=== PATIENT | male | born 1935 | race Caucasian/White ===

== ENCOUNTER 2021-10-08 09:17 | Inpatient (IN) | payer MEDICARE, BC ==
[2021-10-06 17:15] VITALS: BMI 25.2
--- NOTE | 2021-10-07 19:05 | P.GSHP ---
History of Present Illness H&P Date: 10/07/21 86yo male in urinary retention who has failed several attempts at spontaneous voiding who comes for a bipolar turp. the risks and complications have been explained to the patient and son including infection, sepsis, cardiac issues, anesthetic issues persistent retention incontinence. - Constitutional Constitutional: Denies chills, Denies fever - EENT Eyes: denies blurred vision, denies pain Ears, nose, mouth and throat: Denies headache, Denies sore throat - Cardiovascular Cardiovascular: Denies chest pain, Denies shortness of breath - Respiratory Respiratory: Denies cough, Denies 7 - Gastrointestinal Gastrointestinal: Denies abdominal pain, Denies diarrhea, Denies nausea, Denies vomiting - Genitourinary (Female) Genitourinary: Denies dysuria, Denies hematuria - Genitourinary (Male) Genitourinary: Denies dysuria, Denies hematuria - Musculoskeletal Musculoskeletal: Denies myalgias - Integumentary Integumentary: Denies pruritus, Denies rash - Neurological Neurological: Denies numbness, Denies weakness - Psychiatric Psychiatric: Denies anxiety, Denies depression - Endocrine Endocrine: Denies fatigue, Denies weight change Past Medical History Past Medical History: Cancer, CVA/TIA, Dementia, Diabetes Mellitus, GERD/Reflux, Hearing Disorder / Deafness, Hyperlipidemia, Hypertension, Prostate Disorder Additional Past Medical History / Comment(s): was admitted to [facility] August 2021 for urinary bleeding, urinary blockage,?kidney stone,has alvarado catheter inserted.son Jeanmarie Cornejo is LG-[place] pt and Letter of Guardianship day of proc.Dtr n law stated pt "has hx of dementia but can sign own consents at times",deaf lt ear,[place] rt ear, hx CVA-no residual-was told by Dr Albert yrs ago,skin [place] History of Any Multi-Drug Resistant Organisms: None Reported Past Surgical History: Joint Replacement Additional Past Surgical History / Comment(s): cystoscopy,left knee replaced x2 Past Anesthesia/Blood Transfusion Reactions: No Reported Reaction Additional Past Anesthesia/Blood Transfusion Reaction / Comment(s): no known hx blood transfusion Smoking Status: Former smoker, Second hand smoke exposure - Past Family History Father Additional Family Medical History / Comment(s): PARKINSON'S DX. FATHER IN HIS EARLY 90'S Mother Additional Family Medical History / Comment(s): MOTHER -AIRPLANE CRASH. Medications and Allergies Home Medications Medication Instructions Recorded Confirmed Type INSULIN ASPART (NovoLOG) [NovoLOG] 1 dose INJ QID PRN 12/05/13 10/06/21 History Levothyroxine Sodium [Synthroid] 75 mcg PO QAM 12/05/13 10/06/21 History Aspirin 81 mg PO DAILY 09/07/14 10/06/21 History Cholecalciferol [Vitamin D3] 50 mcg PO DAILY 09/07/14 10/06/21 History Atorvastatin [Lipitor] 10 mg PO DAILY 10/06/21 10/06/21 History Famotidine 20 mg PO BID 10/06/21 10/06/21 History Fenofibrate Nanocrystallized 145 mg PO DAILY 10/06/21 10/06/21 History [Fenofibrate] Fluconazole [Diflucan] 100 mg PO DAILY 10/06/21 10/06/21 History Insulin Degludec [Tresiba] 16 units SQ QAM 10/06/21 10/06/21 History Losartan [Cozaar] 50 mg PO QAM 10/06/21 10/06/21 History Multivitamins, Thera [Multivitamin 1 tab PO DAILY 10/06/21 10/06/21 History (formulary)] Sennosides [Senokot] 8.6 mg PO DAILY 10/06/21 10/06/21 History Allergies Allergy/AdvReac Type Severity Reaction Status Date / Time hydroxyzine pamoate Allergy Hallucinati Verified 10/06/21 16:39 [From Vistaril] ons lorazepam [From Ativan] Allergy Hallucinati Verified 10/06/21 16:39 ons Penicillins Allergy Rash/Hives Verified 10/06/21 16:39 solifenacin succinate Allergy Hallucinati Verified 10/06/21 16:39 [From Vesicare] ons amantadine AdvReac Hallucinati Verified 10/06/21 16:39 ons carbidopa AdvReac Hallucinati Verified 10/06/21 16:39 ons diphenhydramine HCl AdvReac Hallucinati Verified 10/06/21 16:39 [From Benadryl] ons hydroxyzine HCl AdvReac Hallucinati Verified 10/06/21 16:39 [From Vistaril] ons levodopa AdvReac Hallucinati Verified 10/06/21 16:41 ons risperidone [From Risperdal] AdvReac Hallucinati Verified 10/06/21 16:39 ons Surgical - Exam - General well developed, well nourished, no distress - Eyes normal ocular movement, no icteric - ENT no hearing loss, no congestion - Neck no masses, trachea midline - Respiratory normal respiratory effort, clear to auscultation - Abdomen Abdomen: soft, non tender, no guarding, no rigid, no rebound - Genitourinary indwelling catheter, enlarged prostate. - Integumentary no rash, no abnormal pigmentation - Neurologic no disoriented, no combative - Psychiatric oriented to time, oriented to person, oriented to place, speech is normal, memory intact Assessment and Plan Assessment: Impression: Urine retention secondary to enlarged prostate. Multiple medical issues Plan: Bipolar turp
[~2021-10-08 09:17] MED LIST: DEXAMETHASONE SOD PHOSPHATE 4 MG/ML 1 ML VIAL IV ONE; GENTAMICIN 90 MG in SODIUM CHLORIDE 0.9% 100 ML IVPB PRN; ONDANSETRON 4 MG/2 ML VIAL IVP ONE; fentaNYL (PF) 50 MCG/ML 2 ML AMP IV PRN
[2021-10-08] MEDS: LACTATED RINGERS 1,000 ML IV SCH (10:15)
[2021-10-08] MEDS ORDERED: LIDOCAINE 1% (10MG/ML) FOR IV START INTRADERMA ONE (10:15)
[2021-10-08 10:29] LABS: Glucose,Whole Blood 109 mg/dL (70-110)
[2021-10-08] MEDS ORDERED: LIDOCAINE 2% INJ 20 MG/ML (2 ML VIAL) ONE (11:07)
[2021-10-08] MEDS ORDERED: PROPOFOL 10 MG/ML 20 ML VIAL IV ONE (11:07)
[2021-10-08] MEDS ORDERED: fentaNYL (PF) 50 MCG/ML 2 ML AMP ONE (11:07)
[2021-10-08] MEDS ORDERED: GLYCOPYRROLATE 0.2 MG/ML 2 ML VIAL ONE (11:07)
[2021-10-08] MEDS ORDERED: ROCURONIUM 10 MG/ML (5 ML VIAL) IV ONE (11:07)
[2021-10-08] MEDS ORDERED: SUCCINYLCHOLINE CHLORIDE 200 MG/10 ML VIAL IV ONE (11:07)
[2021-10-08] MEDS ORDERED: NEOSTIGMINE 1 MG/ML 10 ML VIAL ONE (11:07)
[2021-10-08] MEDS ORDERED: ACETAMINOPHEN TAB 325 MG TAB PO PRN (12:27)
--- NOTE | 2021-10-08 12:32 | P.OP ---
Date of Procedure: 10/08/21 Preoperative Diagnosis: Urine retention secondary to BPH Postoperative Diagnosis: Same Procedure(s) Performed: Bipolar TURP Anesthesia: FABRICE Surgeon: Dennis Tafoya Estimated Blood Loss (ml): 50 Pathology: other (Prostate) Condition: stable Disposition: PACU Indications for Procedure: The patient is 86. His urine retention. Medical management is filled to liberate him of his urine retention. He comes for a bipolar TURP as he has an obstructing prostate Description of Procedure: Patient brought to the operating suite. Given general anesthesia. Placed lithotomy position with sterile prep and drape. Under direct vision the 25- Urdu sheath and direct vision obturator and Foroblique lenses introduced in urethra anterior urethra is normal. The prostatic urethra shows trilobar obstruction with a heavily trabeculated bladder. With the Skubana resectoscope I first resect the left lateral lobe from 12:00 to 6:00 from bladder neck to verumontanum. I do the same of the right lateral lobe and then resect the redundant floor tissue. The bladder is freed of prostatic chips with the Brad evacuator. I reinspected the prostate fossa and control any bleeding with electrocautery. There no remaining chips in the bladder. The resectoscope rem verito. The bladder is creded withStrong stream. An 18-Urdu coud-tip catheter is introduced the bladder with clear to light pink urine return. The patient will be placed in the hospital overnight due to his age. He tolerated procedure well.
[2021-10-08 13:46] LABS: Glucose,Whole Blood 126 mg/dL (70-110)
[2021-10-08 16:38] LABS: Glucose,Whole Blood 193 mg/dL (70-110)
[2021-10-08] MEDS ORDERED: FAMOTIDINE 20 MG TAB PO SCH (21:00)
[2021-10-08 21:08] LABS: Glucose,Whole Blood 219 mg/dL (70-110)
[2021-10-09] MEDS ORDERED: ONDANSETRON 4 MG/2 ML VIAL IVP PRN (00:10)
[2021-10-09] MEDS ORDERED: PANTOPRAZOLE 40 MG/10 ML VIAL IVP ONE (04:48)
[2021-10-09] MEDS: LEVOTHYROXINE 75 MCG TAB PO SCH (05:18)
[2021-10-09 06:35] LABS: Basophils # (A) 0.1 k/uL (0-0.2); Basophils % (A) 1 %; Eosinophils % (A) 0 %; HGB 13.4 gm/dL (13.0-17.5); Hypochromasia Moderate; Lymphocytes # (A) 0.9 k/uL (1.0-4.8); Lymphocytes % (A) 5 %; MCH 28.9 pg (25.0-35.0); MCHC 31.2 g/dL (31.0-37.0); MCV 92.7 fL (80.0-100.0); Mean Platelet Volume 8.3; Monocytes # (A) 1.3 k/uL (0-1.0); Monocytes % (A) 7 %; Neutrophils # (A) 16.4 k/uL (1.3-7.7); Neutrophils % (A) 87 %; Platelet Count 366 k/uL (150-450); RBC 4.64 m/uL (4.30-5.90); RDW 14.1 % (11.5-15.5); WBC 18.8 k/uL (3.8-10.6)
[2021-10-09 07:03] LABS: Glucose,Whole Blood 248 mg/dL (70-110)
[2021-10-09] MEDS ORDERED: DEXTROSE 50% SYRINGE 50 ML IVP PRN ×2 (08:23)
--- NOTE | 2021-10-09 08:27 | P.CONS ---
History of Present Illness - Reason for Consult Consult date: 10/09/21 vomiting Requesting physician: Bryn Miles - Chief Complaint urinary retention - History of Present Illness Patient is a an 86-year-old male with history of urinary retention, diabetes, GERD, dyslipidemia, hypertension, and multiple other comorbid conditions who presented for bipolar transurethral resection of the prostate. Apparently patient had 3 episodes of coffee-ground emesis overnight and consult to medicine was placed. He was given Protonix. Serial hemoglobins were ordered. Alexa Urine culture was completed on 10/01/21 and showed alexa. He has been on diflucan. Patient seen and examined at bedside. He reports that he was doing well after surgery until late last evening. He started having some nausea and vomiting. He vomited approximately 6 times a minute was some concern on his last episode of emesis that there was blood areas he denies any prior history of GI bleeding. He does state that he has severe acid reflux. I asked if he has a history of diabetic gastroparesis, he has stated that in the past they've told him that everything doesn't empty appropriately. He has already ate eggs this morning and has tolerated that without any vomiting. He also states that last night he was on the bathroom trying to have a bowel movement but couldn't and then was vomiting. He denies any overt abdominal pain. Denies any fevers or chills. States he was in his typical state of health prior to surgery. Pertinent positives and negatives as discussed in HPI, a complete review of systems was performed and all other systems are negative. Vital signs reviewed General: nontoxic, no distress, appears at stated age Derm: warm, dry Head: atraumatic, normocephalic, symmetric Eyes: EOMI, no lid lag, anicteric sclera, pupils equal round reactive to light ENT: Nose and ears atraumatic, no thrush, no pharyngeal erythema Neck: No thyromegaly, no cervical lymphadenopathy, trachea midline, supple Mouth: no lip lesion, mucus membranes moist Cardiovascular: S1S2 reg, no murmur, positive posterior tibial pulse bilateral, no edema, capillary refill less than 2 seconds Lungs: clear to auscultation bilateral, no rhonchi, no rales, no wheeze, no accessory muscle use Abdominal: soft, nontender to palpation, no guarding, no appreciable organomegaly, normal bowel sounds Ext: no gross muscle atrophy, muscle strength muscle strength 5 out of 5 in all 4 extremities, no contractures Neuro: CN II-XII grossly intact, light touch intact all 4 extremities, finger to nose within normal limits, Psych: Alert, oriented, appropriate affect Assessment/Plan: 86 yo M s/p TURP with hematuria, post op management per urology Postoperative nausea and vomiting -suspect component of gastroparesis given long standing hx of insulin dependent diabetes -Doubt significant GI bleed as HgB is stable and emsis in basin appears more fecculant. -Check KUB to rule out ileus -Change to full liquid diet -Serial CBCs -Continue with Protonix - hold home PPI while on H2 raman DM 2 - 1/2 the levemir this morning, add sliding scale insulin - follow BS HTN - follow BP - Cozaar HLD - fenofibrate Chronic: Dementia Prior CVA with no residual deficits Heart appearing Thank you for allowing us to participate in the care of this pleasant patient. Do not hesitate to contact us with questions. Someone can be reached from the [facility] hospitalist group all hours of the day at [phone] or via [employer]. Past Medical History Past Medical History: Cancer, CVA/TIA, Dementia, Diabetes Mellitus, GERD/Reflux, Hearing Disorder / Deafness, Hyperlipidemia, Hypertension, Prostate Disorder Additional Past Medical History / Comment(s): was admitted to [facility] August 2021 for urinary bleeding, urinary blockage,?kidney stone,has alvarado catheter inserted.son Jeanmarie Cornejo is LG-[place] pt and Letter of Guardianship day .Dtr n law stated pt "has hx of dementia but can sign own consents at times",deaf lt ear,eyak rt ear, hx CVA-no residual-was told by Dr Albert yrs ago,skin [place] History of Any Multi-Drug Resistant Organisms: None Reported Past Surgical History: Joint Replacement Additional Past Surgical History / Comment(s): cystoscopy,left knee replaced x2 Past Anesthesia/Blood Transfusion Reactions: No Reported Reaction Additional Past Anesthesia/Blood Transfusion Reaction / Comm: no known hx blood transfusion Past Psychological History: No Psychological Hx Reported Smoking Status: Former smoker, Second hand smoke exposure Past Alcohol Use History: None Reported Additional Past Alcohol Use History / Comment(s): quit smoking in 1965 Past Drug Use History: None Reported - Past Family History Father Additional Family Medical History / Comment(s): PARKINSON'S DX. FATHER IN HIS EARLY 90'S Mother Additional Family Medical History / Comment(s): MOTHER -AIRPLANE CRASH. Medications and Allergies Home Medications Medication Instructions Recorded Confirmed Type INSULIN ASPART (NovoLOG) [NovoLOG] 1 dose INJ QID PRN 12/05/13 10/06/21 History Levothyroxine Sodium [Synthroid] 75 mcg PO QAM 12/05/13 10/06/21 History Aspirin 81 mg PO DAILY 09/07/14 10/06/21 History Cholecalciferol [Vitamin D3] 50 mcg PO DAILY 09/07/14 10/06/21 History Atorvastatin [Lipitor] 10 mg PO DAILY 10/06/21 10/06/21 History Famotidine 20 mg PO BID 10/06/21 10/06/21 History Fenofibrate Nanocrystallized 145 mg PO DAILY 10/06/21 10/06/21 History [Fenofibrate] Fluconazole [Diflucan] 100 mg PO DAILY 10/06/21 10/06/21 History Insulin Degludec [Tresiba] 16 units SQ QAM 10/06/21 10/06/21 History Losartan [Cozaar] 50 mg PO QAM 10/06/21 10/06/21 History Multivitamins, Thera [Multivitamin 1 tab PO DAILY 10/06/21 10/06/21 History (formulary)] Sennosides [Senokot] 8.6 mg PO DAILY 10/06/21 10/06/21 History Allergies Allergy/AdvReac Type Severity Reaction Status Date / Time hydroxyzine pamoate Allergy Hallucinati Verified 10/06/21 16:39 [From Vistaril] ons lorazepam [From Ativan] Allergy Hallucinati Verified 10/06/21 16:39 ons Penicillins Allergy Rash/Hives Verified 10/06/21 16:39 solifenacin succinate Allergy Hallucinati Verified 10/06/21 16:39 [From Vesicare] ons amantadine AdvReac Hallucinati Verified 10/06/21 16:39 ons carbidopa AdvReac Hallucinati Verified 10/06/21 16:39 ons diphenhydramine HCl AdvReac Hallucinati Verified 10/06/21 16:39 [From Benadryl] ons hydroxyzine HCl AdvReac Hallucinati Verified 10/06/21 16:39 [From Vistaril] ons levodopa AdvReac Hallucinati Verified 10/06/21 16:41 ons risperidone [From Risperdal] AdvReac Hallucinati Verified 10/06/21 16:39 ons Physical Exam Osteopathic Statement: *. No significant issues noted on an osteopathic structural exam other than those noted in the History and Physical/Consult. Vitals: Vital Signs Temp Pulse Pulse Resp BP BP Pulse Ox 10/09/21 07:38 97.9 F 100 18 109/68 94 L 10/09/21 05:43 102 H 122/74 10/09/21 04:45 102 H 106/70 10/09/21 02:06 97.4 F L 110 H 19 146/77 96 10/09/21 00:01 109 H 135/76 10/08/21 23:58 111 H 132/82 10/08/21 23:50 114 H 18 197/91 97 10/08/21 19:57 16 10/08/21 19:00 97.9 F 109 H 20 170/93 98 10/08/21 14:00 97.4 F L 82 16 182/84 98 10/08/21 13:34 80 16 170/81 94 L 10/08/21 13:19 68 16 169/78 100 10/08/21 13:04 64 16 173/84 100 10/08/21 12:49 67 16 174/84 100 10/08/21 12:34 97.6 F 77 16 180/91 99 10/08/21 10:15 97.9 F 81 16 144/66 97 Intake and Output 10/08/21 10/09/21 10/09/21 22:59 06:59 14:59 Intake Total 480 Output Total 1250 875 Balance -770 -875 Intake: Oral 480 Output: Urine 1250 875 Coude 850 Other: Voiding Method Indwelling Catheter Indwelling Catheter Results CBC & Chem 7: 10/09/21 05:23 Labs: Abnormal Lab Results - Last 24 Hours (Table) 10/08/21 10/08/21 10/08/21 Range/Units 13:42 16:36 21:06 WBC (3.8-10.6) k/uL Neutrophils # (1.3-7.7) k/uL Lymphocytes # (1.0-4.8) k/uL Monocytes # (0-1.0) k/uL POC Glucose (mg/dL) 126 H 193 H 219 H (70-110) mg/dL 10/09/21 10/09/21 Range/Units 05:23 07:01 WBC 18.8 H (3.8-10.6) k/uL Neutrophils # 16.4 H (1.3-7.7) k/uL Lymphocytes # 0.9 L (1.0-4.8) k/uL Monocytes # 1.3 H (0-1.0) k/uL POC Glucose (mg/dL) 248 H (70-110) mg/dL
[2021-10-09] MEDS: INSULIN DETEMIR (LEVEMIR) 100 UNIT/ML SYR SQ SCH ×3 (08:35→21:27)
[2021-10-09] MEDS: LACTATED RINGERS 1,000 ML IV SCH (08:35)
[2021-10-09] MEDS ORDERED: FAMOTIDINE 20 MG TAB PO SCH (09:00)
[2021-10-09] MEDS: SENNOSIDES 8.6 MG TAB PO SCH (09:12)
[2021-10-09] MEDS: FENOFIBRATE 160 MG TAB PO SCH (09:12)
[2021-10-09] MEDS: LOSARTAN 50 MG TAB PO SCH (09:12)
[2021-10-09] MEDS: FLUCONAZOLE 100 MG TAB PO SCH (09:12)
[2021-10-09] MEDS: ATORVASTATIN 10 MG TAB PO SCH (09:12)
[2021-10-09 11:17] LABS: Glucose,Whole Blood 192 mg/dL (70-110)
[2021-10-09] MEDS: INSULIN ASPART (NovoLOG) 100 UNIT/ML VIAL SQ SCH ×3 (12:15→21:26)
--- NOTE | 2021-10-09 12:52 | XR ---
KUB HISTORY: Ileus KUB on 2 images, no comparisons There are air-filled loops of small and large bowel present. Some air-fluid levels are noted without bowel distention. No evident pneumoperitoneum. Lung bases show some possible atelectasis or scarring on the left, eventration of the hemidiaphragm on the right. Atherosclerotic vascular calcifications a re noted incidentally. Probable vascular calcifications within the pelvis. There is a spinal curvatur e. Degenerative disc changes are noted in the visualized spine. IMPRESSION: Findings could represent ileus or enteritis, possible basilar atelectasis, follow-up as i ndicated.
--- NOTE | 2021-10-09 12:52 | P.PN ---
Subjective Progress Note Date: 10/09/21 Patient his catheter clotted overnight, requiring catheter exchange. This morning urine still hematuric, was able to irrigate with return of approximately 50 mL of clot. Hemoglobin is stable, urine is light red after irrigation Objective - Vital Signs Vital signs: Vital Signs Temp 97.9 F 10/09/21 07:38 Pulse 100 10/09/21 07:38 Resp 18 10/09/21 07:38 BP 109/68 10/09/21 07:38 Pulse Ox 94 L 10/09/21 07:38 FiO2 Intake & Output 10/08/21 10/09/21 10/09/21 18:59 06:59 18:59 Intake Total 1382.25 Output Total 900 1625 Balance 482.25 -1625 Weight 68 kg Intake: IV 902.25 Oral 480 Output: Urine 850 1625 Coude 100 750 Estimated Blood Loss 50 Other: Voiding Method Indwelling Catheter Indwelling Catheter - Constitutional General appearance: Present: no acute distress - Gastrointestinal General gastrointestinal: Absent: distended, tenderness - Genitourinary Genitourinary Comment(s): alvarado light red urine - Labs CBC & Chem 7: 10/09/21 05:23 Labs: Abnormal Lab Results - Last 24 Hours (Table) 10/08/21 10/08/21 10/08/21 Range/Units 13:42 16:36 21:06 WBC (3.8-10.6) k/uL Neutrophils # (1.3-7.7) k/uL Lymphocytes # (1.0-4.8) k/uL Monocytes # (0-1.0) k/uL POC Glucose (mg/dL) 126 H 193 H 219 H (70-110) mg/dL 10/09/21 10/09/21 10/09/21 Range/Units 05:23 07:01 11:15 WBC 18.8 H (3.8-10.6) k/uL Neutrophils # 16.4 H (1.3-7.7) k/uL Lymphocytes # 0.9 L (1.0-4.8) k/uL Monocytes # 1.3 H (0-1.0) k/uL POC Glucose (mg/dL) 248 H 192 H (70-110) mg/dL Assessment and Plan Assessment: S/P TURP -Will keep alvarado in place, irrigate PRN -alvarado will be placed on traction
[2021-10-09 16:29] LABS: Glucose,Whole Blood 228 mg/dL (70-110)
[2021-10-09 16:46] LABS: HCT 39.4 % (39.0-53.0); HGB 12.1 gm/dL (13.0-17.5); Hypochromasia Slight; MCHC 30.8 g/dL (31.0-37.0); Mean Platelet Volume 9.1; Platelet Count 395 k/uL (150-450); RBC 4.33 m/uL (4.30-5.90); RDW 13.9 % (11.5-15.5); WBC 19.2 k/uL (3.8-10.6)
[2021-10-09] MEDS: PANTOPRAZOLE 40 MG/10 ML VIAL IVP SCH ×2 (16:55→21:27)
[2021-10-09 20:50] LABS: Glucose,Whole Blood 136 mg/dL (70-110)
[2021-10-09 22:58] LABS: HCT 38.7 % (39.0-53.0); Hypochromasia Slight; MCH 27.7 pg (25.0-35.0); MCHC 30.9 g/dL (31.0-37.0); MCV 89.6 fL (80.0-100.0); Mean Platelet Volume 7.4; Platelet Count 322 k/uL (150-450); RBC 4.32 m/uL (4.30-5.90); RDW 13.7 % (11.5-15.5); WBC 16.5 k/uL (3.8-10.6)
[2021-10-10 00:26] LABS: HCT 34.3 % (39.0-53.0); HGB 11.1 gm/dL (13.0-17.5); MCH 28.7 pg (25.0-35.0); MCHC 32.3 g/dL (31.0-37.0); MCV 88.9 fL (80.0-100.0); Mean Platelet Volume 7.2; Platelet Count 299 k/uL (150-450); RBC 3.86 m/uL (4.30-5.90); RDW 13.9 % (11.5-15.5); WBC 15.5 k/uL (3.8-10.6)
[2021-10-10] MEDS: LEVOTHYROXINE 75 MCG TAB PO SCH (05:55)
[2021-10-10 06:47] LABS: Glucose,Whole Blood 149 mg/dL (70-110)
[2021-10-10] MEDS: INSULIN ASPART (NovoLOG) 100 UNIT/ML VIAL SQ SCH ×4 (07:52→21:45)
[2021-10-10] MEDS: LACTATED RINGERS 1,000 ML IV SCH (07:53)
--- NOTE | 2021-10-10 07:58 | P.PN ---
Subjective Urine light red this morning, irrigated 50 mL of clot this morning. Abdomen is soft Objective - Vital Signs Vital signs: Vital Signs Temp 97.8 F 10/10/21 02:15 Pulse 87 10/10/21 02:15 Resp 18 10/10/21 02:15 BP 116/65 10/10/21 02:15 Pulse Ox 98 10/10/21 02:15 FiO2 Intake & Output 10/09/21 10/10/21 10/10/21 18:59 06:59 18:59 Intake Total 1560 680 Output Total 800 1100 Balance 760 -420 Intake: Intake, IV Titration 200 Amount Lactated Ringers 1,000 ml 200 @ 20 mls/hr IV .Q24H [facility] Rx#:[id number] Oral 1560 480 Output: Urine 800 1100 Coude 1100 Other: Voiding Method Indwelling Catheter Indwelling Catheter - Constitutional General appearance: Present: no acute distress - Gastrointestinal General gastrointestinal: Present: soft. Absent: distended, tenderness - Labs CBC & Chem 7: 10/10/21 00:06 Labs: Abnormal Lab Results - Last 24 Hours (Table) 10/09/21 10/09/21 10/09/21 Range/Units 11:15 14:15 16:28 WBC 19.2 H (3.8-10.6) k/uL RBC (4.30-5.90) m/uL Hgb 12.1 L (13.0-17.5) gm/dL Hct (39.0-53.0) % MCHC 30.8 L (31.0-37.0) g/dL POC Glucose (mg/dL) 192 H 228 H (70-110) mg/dL 10/09/21 10/09/21 10/10/21 Range/Units 20:48 21:29 00:06 WBC 16.5 H 15.5 H (3.8-10.6) k/uL RBC 3.86 L (4.30-5.90) m/uL Hgb 12.0 L 11.1 L (13.0-17.5) gm/dL Hct 38.7 L 34.3 L (39.0-53.0) % MCHC 30.9 L (31.0-37.0) g/dL POC Glucose (mg/dL) 136 H (70-110) mg/dL 10/10/21 Range/Units 06:45 WBC (3.8-10.6) k/uL RBC (4.30-5.90) m/uL Hgb (13.0-17.5) gm/dL Hct (39.0-53.0) % MCHC (31.0-37.0) g/dL POC Glucose (mg/dL) 149 H (70-110) mg/dL Assessment and Plan Assessment: S/P TURP -Will keep alvarado in place, irrigate PRN -Keep Alvarado in traction -Plan on discharge home tomorrow
[2021-10-10] MEDS: INSULIN DETEMIR (LEVEMIR) 100 UNIT/ML SYR SQ SCH ×2 (08:36→21:45)
[2021-10-10] MEDS: FENOFIBRATE 160 MG TAB PO SCH (08:37)
[2021-10-10] MEDS: ATORVASTATIN 10 MG TAB PO SCH (08:37)
[2021-10-10] MEDS: SENNOSIDES 8.6 MG TAB PO SCH (08:37)
[2021-10-10] MEDS: LOSARTAN 50 MG TAB PO SCH (08:37)
[2021-10-10] MEDS: FLUCONAZOLE 100 MG TAB PO SCH (08:37)
[2021-10-10] MEDS: PANTOPRAZOLE 40 MG/10 ML VIAL IVP SCH ×2 (08:51→20:22)
[2021-10-10 12:02] LABS: Glucose,Whole Blood 245 mg/dL (70-110)
--- NOTE | 2021-10-10 12:35 | P.PN ---
Progress Note - Text Progress Note Date: 10/10/21 Patient was seen and examined. No acute events overnight. Patient reports no bowel movement. No abdominal pain. No more nausea and vomiting. Passing gas. General: [non toxic], [no distress], [appears at stated age] Derm: [warm], [dry] Head: [atraumatic], [normocephalic], [symmetric] Eyes: [EOMI], [no lid lag], [anicteric sclera] Mouth: [no lip lesion], [mucus membranes moist] Cardiovascular: [S1S2 reg], [no murmur] Lungs: [CTA bilateral], [no rhonchi, no rales] , [no accessory muscle use] Abdominal: [soft], [ nontender to palpation], [positive bowel sounds], [no appreciable organomegaly] Ext: [no gross muscle atrophy], [no edema], [no contractures] Neuro: [no focal neuro deficits] Psych: [Alert], [oriented], [appropriate affect] Assessment/Plan: 86 yo M s/p TURP with hematuria, post op management per urology Postoperative nausea and vomiting - suspect component of gastroparesis given long standing hx of insulin dependent diabetes - Doubt significant GI bleed as HgB is stable and emsis in basin appears more fecculant. - KUB shows possible ileus - GI soft diet and advance as tolerated - Continue with Protonix IV DM 2 - 1/2 the levemir, add sliding scale insulin - Regular Accu-Cheks with hypoglycemic precautions HTN - follow BP - Cozaar HLD - fenofibrate Thank you for allowing us to participate in the care of this pleasant patient. Do not hesitate to contact us with questions. Someone can be reached from the [facility] hospitalist group all hours of the day at [phone] or via [employer].
[2021-10-10 16:48] LABS: Glucose,Whole Blood 173 mg/dL (70-110)
[2021-10-10 20:29] LABS: Glucose,Whole Blood 200 mg/dL (70-110)
[2021-10-11] MEDS: LEVOTHYROXINE 75 MCG TAB PO SCH (05:41)
[2021-10-11] MEDS: LACTATED RINGERS 1,000 ML IV SCH (06:51)
[2021-10-11 06:53] LABS: Glucose,Whole Blood 125 mg/dL (70-110)
[2021-10-11] MEDS: INSULIN ASPART (NovoLOG) 100 UNIT/ML VIAL SQ SCH ×2 (07:01→11:45)
[2021-10-11] MEDS: FENOFIBRATE 160 MG TAB PO SCH (07:07)
[2021-10-11] MEDS: SENNOSIDES 8.6 MG TAB PO SCH (07:07)
[2021-10-11] MEDS: LOSARTAN 50 MG TAB PO SCH (07:07)
[2021-10-11] MEDS: FLUCONAZOLE 100 MG TAB PO SCH (07:08)
[2021-10-11] MEDS: INSULIN DETEMIR (LEVEMIR) 100 UNIT/ML SYR SQ SCH (07:08)
[2021-10-11] MEDS: ATORVASTATIN 10 MG TAB PO SCH (07:08)
[2021-10-11 07:54] VITALS: BP 133/68; PULSE 72; RESP 17; TEMP 97.6
[2021-10-11] MEDS: PANTOPRAZOLE 40 MG/10 ML VIAL IVP SCH (08:24)
[2021-10-11 08:33] LABS: HCT 39.8 % (39.0-53.0); HGB 12.3 gm/dL (13.0-17.5); Hypochromasia Slight; MCV 90.2 fL (80.0-100.0); Mean Platelet Volume 8.2; Platelet Count 318 k/uL (150-450); RBC 4.41 m/uL (4.30-5.90); RDW 13.9 % (11.5-15.5); WBC 9.7 k/uL (3.8-10.6)
[2021-10-11 11:40] LABS: Glucose,Whole Blood 318 mg/dL (70-110)
--- NOTE | 2021-10-11 12:49 | P.PN ---
Subjective Progress Note Date: 10/11/21 Patient was seen and examined. No acute events overnight. Patient reports no bowel movement. No abdominal pain. No more nausea and vomiting. General: [non toxic], [no distress], [appears at stated age] Derm: [warm], [dry] Head: [atraumatic], [normocephalic], [symmetric] Eyes: [EOMI], [no lid lag], [anicteric sclera] Mouth: [no lip lesion], [mucus membranes moist] Cardiovascular: [S1S2 reg], [no murmur] Lungs: [CTA bilateral], [no rhonchi, no rales] , [no accessory muscle use] Abdominal: [soft], [ nontender to palpation], [positive bowel sounds], [no appreciable organomegaly] Ext: [no gross muscle atrophy], [no edema], [no contractures] Neuro: [no focal neuro deficits] Psych: [Alert], [oriented], [appropriate affect] Assessment/Plan: 86 yo M s/p TURP with hematuria, post op management per urology Postoperative nausea and vomiting - suspect component of gastroparesis given long standing hx of insulin dependent diabetes - Doubt significant GI bleed as HgB is stable and emsis in basin appears more fecculant. - KUB shows possible ileus - GI soft diet and advance as tolerated - Continue with Protonix IV DM 2 - 1/2 the levemir, add sliding scale insulin - Regular Accu-Cheks with hypoglycemic precautions HTN - follow BP - Cozaar HLD - fenofibrate Thank you for allowing us to participate in the care of this pleasant patient. Medically stable for discharge. Do not hesitate to contact us with questions. Someone can be reached from the [facility] hospitalist group all hours of the day at [phone] or via [employer]. Objective - Vital Signs Vital signs: Vital Signs Temp 97.6 F 10/11/21 07:52 Pulse 72 10/11/21 07:52 Resp 17 10/11/21 07:52 BP 133/68 10/11/21 07:52 Pulse Ox 95 10/11/21 07:52 FiO2 Intake & Output 10/10/21 10/11/21 10/11/21 18:59 06:59 18:59 Intake Total 540 Output Total 2350 2200 925 Balance -1810 -2200 -925 Intake: Oral 540 Output: Urine 2349 Coude 650 650 Other: Voiding Method Indwelling Catheter Indwelling Catheter Indwelling Catheter - Labs CBC & Chem 7: 10/11/21 07:53 Labs: Abnormal Lab Results - Last 24 Hours (Table) 10/10/21 10/10/21 10/11/21 Range/Units 16:46 20:27 06:52 Hgb (13.0-17.5) gm/dL POC Glucose (mg/dL) 173 H 200 H 125 H (70-110) mg/dL 10/11/21 10/11/21 Range/Units 07:53 11:37 Hgb 12.3 L (13.0-17.5) gm/dL POC Glucose (mg/dL) 318 H (70-110) mg/dL
== END 2021-10-11 13:17 | disposition home or self-care (01) | DRG 989 ==
LOC: OR 09:17 → EEVIPCON 09:17 → 4SSUR 12:19 → OR 10-10 13:09 → 4SSUR 10-10 13:09
PROVIDERS: ADMIT Urology; ATTEND Urology
PROC: 0VT08ZZ Resection of Prostate, Via Natural or Artificial Opening Endoscopic (ICD-10-PCS; principal; 2021-10-08 10:45)
DX: E11.43 Type 2 diabetes mellitus with diabetic autonomic (poly)neuropathy (principal); F03.90 Unspecified dementia, unspecified severity, without behavioral disturbance, psychotic disturbance, mood disturbance, and anxiety; E78.5 Hyperlipidemia, unspecified; Z79.4 Long term (current) use of insulin; Z28.310 Unvaccinated for COVID-19; K31.84 Gastroparesis; I10 Essential (primary) hypertension; N40.1 Benign prostatic hyperplasia with lower urinary tract symptoms; R31.9 Hematuria, unspecified; R33.8 Other retention of urine; H91.93 Unspecified hearing loss, bilateral; K21.9 Gastro-esophageal reflux disease without esophagitis; Z87.442 Personal history of urinary calculi; Z87.891 Personal history of nicotine dependence; Z77.22 Contact with and (suspected) exposure to environmental tobacco smoke (acute) (chronic); Z79.82 Long term (current) use of aspirin; Z79.890 Hormone replacement therapy; Z79.899 Other long term (current) drug therapy; Z86.73 Personal history of transient ischemic attack (TIA), and cerebral infarction without residual deficits; Z96.652 Presence of left artificial knee joint; Z88.0 Allergy status to penicillin; Z88.8 Allergy status to other drugs, medicaments and biological substances
CPT/HCPCS: 74018; 82271; 85025; 85027; 88305

== ENCOUNTER → 2021-12-30 | Outpatient (CLI) | payer MEDICARE, BC ==
--- NOTE | 2021-12-31 07:58 | MR ---
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 The patient was then given intravenous contrast and multi planar, T1 fat-saturation images wer e obtained. IV Contrast: 7 cc Gadavist FINDINGS: Generalized cerebral atrophy with scattered high T2 foci in the white matter including the tatum.. The lin-white junctions, ventricular system, basal cisterns appear unremarkable. Diffusion-weighted mamie ging shows no evidence of restricted diffusion to suggest acute/subacute infarct. Intracranial arteri al flow voids are maintained. Midline structures show no abnormality. Patchy areas of high T2 signal intensity are seen within the periventricular white matter. The susceptibility weighted images do not reveal any evidence for micro-hemorrhage. After administration of gadolinium, no abnormal enhancemen t is seen. The bone marrow signal is within normal limits. The paranasal sinuses. Bilaterally aphakia. There is enhancement of the left internal auditory canal measuring 10 x 7 x 7 mm. IMPRESSION: 1. 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 2. Nonspecific white matter changes, likely related to small vessel ischemic disease
== END | disposition home or self-care (01) ==
LOC: RADMRIMAIN 14:32
PROVIDERS: ATTEND Psychiatry & Neurology Neurology
DX: R90.82 White matter disease, unspecified (principal); H91.02 Ototoxic hearing loss, left ear
CPT/HCPCS: 70553; A9585